=== PATIENT | female | born 1940 | race Caucasian/White ===

== ENCOUNTER 2017-05-14 01:20 | Inpatient (IN) | payer OTHER ==
[~2017-05-14] VITALS: Ht 147.3 cm; Wt 52.2 kg
[2017-05-14] MEDS ORDERED: METF-370 PO (01:45)
[2017-05-14] MEDS ORDERED: LEVO25TA6 PO (01:52)
[2017-05-14] MEDS ORDERED: GLIP-116 PO (01:52)
[2017-05-14] MEDS ORDERED: PAR20T PO (01:52)
[2017-05-14] MEDS ORDERED: MEMA1TAB2 PO (01:52)
[2017-05-14] MEDS ORDERED: ACAR50TA9 PO (01:52)
[2017-05-14] MEDS ORDERED: INDA1.252 PO (01:52)
[2017-05-14] MEDS ORDERED: DONE10TA40 PO (01:52)
[2017-05-14] MEDS ORDERED: ENAL2.5T PO (01:52)
[2017-05-14 03:04] LABS: Basophils # (auto) 0 uL; Basophils % (auto) 0.2 % (0.0-2.0); Eosinophils # (auto) 0 uL; Eosinophils % (auto) 0.3 % (0.0-7.0); Hematocrit 35.7 % (36.0-46.0); Lymphocytes # (auto) 1.1 uL; Mean Corpuscular Hemoglobin 29.7 pg (28.0-32.0); Mean Corpuscular Hgb Conc. 33.8 g/dL (32.0-36.0); Monocytes # (auto) 0.6 uL; Monocytes % (auto) 5.3 % (0.0-12.0); Neutrophils # (auto) 9.6 uL; Neutrophils % (auto) 84.2 % (37.0-80.0); Platelet Count (auto) 287 10^3/uL (140-450); Red Blood Cells 4.05 10^6/uL (4.0-5.20); Red Cell Distribution Width 13.2 % (11.8-14.3); White Blood Cell 11.4 10^3/uL (4.4-10.8)
[2017-05-14 03:30] LABS: INR 0.98 (0.9-1.15); Prothrombin Time 10.7 sec (9.37-12.3)
[2017-05-14 03:42] LABS: BUN/Creatinine Ratio 29.7; Potassium 3.1 mmol/L (3.5-5.1)
[2017-05-14 03:43] LABS: Albumin 3.2 g/dL (3.4-5.0); Bilirubin, Total 0.4 mg/dL (0.2-1.0); Calcium 8.8 mg/dL (8.5-10.1); Total Protein 6.4 g/dL (6.4-8.2)
[2017-05-14 04:58] LABS: Magnesium 1.8 mg/dL (1.6-2.6)
[2017-05-14] MEDS ORDERED: MORPHINE SULF INJ 2 MG/ML SYRINGE 1ML IV PRN (07:30)
[2017-05-14] MEDS ORDERED: POTASSIUM CHL 20 Meq TABLET PO ONE (07:30)
[2017-05-14] MEDS ORDERED: HYDROcodone-ACET 5/325MG TAB PO PRN (07:30)
[2017-05-14] MEDS ORDERED: ACETAMINOPHEN 325 MG TAB PO PRN (07:30)
[2017-05-14] MEDS ORDERED: DEXTROSE (50%) 50ML SYRG IV PRN (07:30)
[2017-05-14] MEDS ORDERED: NITROGLYCERIN 0.4 MG SL TAB SL PRN (07:30)
[2017-05-14] MEDS ORDERED: ONDANSETRON HCL 4 MG/2 ML VIAL IV PRN (07:30)
[2017-05-14] MEDS ORDERED: TEMAZEPAM 15 MG CAP PO PRN (07:30)
[2017-05-14] MEDS ORDERED: DOCUSATE SOD 100 MG CAP PO PRN (07:30)
[2017-05-14] MEDS: SODIUM CHLORIDE 0.9% 1,000 ML IV SCH ×2 (08:13→21:08)
[2017-05-14] MEDS ORDERED: POTASSIUM CHL 10% (20 MEQ/15ML) 15ml ORAL SOLN PO ONE (08:15)
[2017-05-14] MEDS ORDERED: ASPirin 81 mg TAB ONE (09:30)
[2017-05-14] MEDS ORDERED: FAMOTIDINE 20 MG TAB ONE (09:32)
[2017-05-14] MEDS ORDERED: ENOXAPARIN SOD 40 MG/0.4 ML SYRINGE SC ONE (09:32)
[2017-05-14] MEDS ORDERED: PARoxetine 20 MG TAB ONE (09:32)
[2017-05-14] MEDS ORDERED: MEMANTINE HCL 5 MG TAB ONE (09:34)
[2017-05-14] MEDS ORDERED: ENALAPRIL MALEATE 10 MG TAB ONE (09:34)
[2017-05-14] MEDS: PARoxetine 20 MG TAB PO SCH (09:56)
[2017-05-14] MEDS: MEMANTINE HCL 5 MG TAB PO SCH ×2 (09:56→22:48)
[2017-05-14] MEDS: FAMOTIDINE 20 MG TAB PO SCH (09:56)
[2017-05-14] MEDS: ASPirin 81 mg TAB PO SCH (09:56)
[2017-05-14] MEDS: ENALAPRIL MALEATE 10 MG TAB PO SCH (09:56)
[2017-05-14] MEDS: ENOXAPARIN SOD 40 MG/0.4 ML SYRINGE SC SCH (09:57)
[2017-05-14] MEDS ORDERED: ONDANSETRON HCL 4 MG/2 ML VIAL ONE (10:06)
[2017-05-14] MEDS: InsuLIN REG 1unit/0.01ml Soln (100units/ml) SC SCH ×3 (11:40→22:48)
[2017-05-14] MEDS: ACCU-CHEK COMFORT CURVE STRIP VI SCH ×3 (11:40→22:48)
[2017-05-14] MEDS ORDERED: LORazepam 2MG/ML-1ML VIAL IV ONE (12:30)
[2017-05-14 13:14] LABS: Potassium 4.5 mmol/L (3.5-5.1)
[2017-05-14 13:15] LABS: BUN/Creatinine Ratio 17.9; Calcium 8.8 mg/dL (8.5-10.1)
[2017-05-14] MEDS ORDERED: DONEPEZIL HYDROCHLORIDE 5 MG TAB PO SCH (22:00)
[2017-05-15] MEDS: ACCU-CHEK COMFORT CURVE STRIP VI SCH (06:03)
[2017-05-15] MEDS: InsuLIN REG 1unit/0.01ml Soln (100units/ml) SC SCH (06:04)
[2017-05-15] MEDS ORDERED: LEVOTHYROXINE SODIUM 25 MCG TAB PO SCH (07:00)
[2017-05-15 07:51] LABS: Basophils # (auto) 0 uL; Basophils % (auto) 0.3 % (0.0-2.0); Eosinophils # (auto) 0 uL; Eosinophils % (auto) 0.2 % (0.0-7.0); Hemoglobin 9.9 g/dL (12.2-16.2); Lymphocytes # (auto) 2.7 uL; Lymphocytes % (auto) 40.8 % (10.0-50.0); Mean Corpuscular Hemoglobin 30.3 pg (28.0-32.0); Mean Corpuscular Hgb Conc. 34.3 g/dL (32.0-36.0); Mean Corpuscular Volume 88.4 fL (80.0-100.0); Monocytes # (auto) 0.5 uL; Monocytes % (auto) 7.9 % (0.0-12.0); Neutrophils # (auto) 3.3 uL; Neutrophils % (auto) 50.8 % (37.0-80.0); Nucleated Red Blood Cells % 0.1 %; Platelet Count (auto) 242 10^3/uL (140-450); Red Blood Cells 3.28 10^6/uL (4.0-5.20); Red Cell Distribution Width 13.2 % (11.8-14.3); White Blood Cell 6.5 10^3/uL (4.4-10.8)
[2017-05-15 08:10] LABS: Albumin 2.7 g/dL (3.4-5.0); BUN/Creatinine Ratio 26.4; Bilirubin, Total 0.5 mg/dL (0.2-1.0); Potassium 3.7 mmol/L (3.5-5.1); Total Protein 5.7 g/dL (6.4-8.2)
[2017-05-15] MEDS: ENALAPRIL MALEATE 10 MG TAB PO SCH (09:50)
[2017-05-15] MEDS: PARoxetine 20 MG TAB PO SCH (09:51)
[2017-05-15] MEDS: ENOXAPARIN SOD 40 MG/0.4 ML SYRINGE SC SCH (09:51)
[2017-05-15] MEDS: FAMOTIDINE 20 MG TAB PO SCH (09:51)
[2017-05-15] MEDS: MEMANTINE HCL 5 MG TAB PO SCH (09:51)
[2017-05-15] MEDS: ASPirin 81 mg TAB PO SCH (09:51)
[2017-05-15 11:53] VITALS: BP 116/57
[2017-05-15 12:01] VITALS: BP 116/57
== END 2017-05-15 14:14 | disposition home health service (06) | DRG 64 ==
LOC: EDBD 01:20 → ER 01:24 → TELE 01:25
PROVIDERS: ADMIT Nurse Practitioner; ATTEND Internal Medicine
DX: I62.01 Nontraumatic acute subdural hemorrhage (principal); G93.41 Metabolic encephalopathy; E11.65 Type 2 diabetes mellitus with hyperglycemia; E87.1 Hypo-osmolality and hyponatremia; I71.2 Thoracic aortic aneurysm, without rupture; J98.11 Atelectasis; W19.XXXA Unspecified fall, initial encounter; E86.0 Dehydration; F32.9 Major depressive disorder, single episode, unspecified; E03.9 Hypothyroidism, unspecified; I11.9 Hypertensive heart disease without heart failure; D72.829 Elevated white blood cell count, unspecified; R29.702 NIHSS score 2; E78.5 Hyperlipidemia, unspecified; E87.6 Hypokalemia; F03.90 Unspecified dementia, unspecified severity, without behavioral disturbance, psychotic disturbance, mood disturbance, and anxiety; Z86.73 Personal history of transient ischemic attack (TIA), and cerebral infarction without residual deficits; Z90.49 Acquired absence of other specified parts of digestive tract; Y93.89 Activity, other specified; Y99.8 Other external cause status; Y92.002 Bathroom of unspecified non-institutional (private) residence as the place of occurrence of the external cause
CPT/HCPCS: 36415; 70450; 70551; 71045; 71275; 80048; 80053; 82962; 83735; 83880; 84484; 85025; 85379; 85610; 85730; 93005; 93306; 93886; 96360; 96372; J1815; J2405

== ENCOUNTER 2017-05-21 15:07 | Emergency (ER) | payer OTHER ==
[~2017-05-21] VITALS: Ht 147.3 cm; Wt 52.2 kg
[~2017-05-21 15:07] MED LIST: ACAR50TA9 PO; DONE10TA40 PO; ENAL2.5T PO; GLIP-116 PO; INDA1.252 PO; LEVO25TA6 PO; MEMA1TAB2 PO; METF-370 PO; PAR20T PO
[2017-05-21 15:57] LABS: Basophils # (auto) 0.1 uL; Basophils % (auto) 1.4 % (0.0-2.0); Eosinophils # (auto) 0.1 uL; Eosinophils % (auto) 1.3 % (0.0-7.0); Hematocrit 33.4 % (36.0-46.0); Hemoglobin 11.3 g/dL (12.2-16.2); Lymphocytes # (auto) 2.2 uL; Lymphocytes % (auto) 23.4 % (10.0-50.0); Mean Corpuscular Hgb Conc. 33.8 g/dL (32.0-36.0); Mean Corpuscular Volume 88.8 fL (80.0-100.0); Monocytes # (auto) 0.7 uL; Monocytes % (auto) 7.6 % (0.0-12.0); Neutrophils # (auto) 6.2 uL; Neutrophils % (auto) 66.3 % (37.0-80.0); Nucleated Red Blood Cells % 0.1 %; Platelet Count (auto) 392 10^3/uL (140-450); Red Blood Cells 3.76 10^6/uL (4.0-5.20); Red Cell Distribution Width 13.3 % (11.8-14.3); White Blood Cell 9.4 10^3/uL (4.4-10.8)
[2017-05-21 16:12] LABS: Alanine Aminotransferase 24 U/L (13-56); Albumin 2.9 g/dL (3.4-5.0); Anion Gap 12 (5-15); BUN/Creatinine Ratio 34.9; Blood Alcohol < 3.0 mg/dL (0-5); Blood Urea Nitrogen 22 mg/dL (7-18); Calcium 9.2 mg/dL (8.5-10.1); Carbon Dioxide 25 mmol/L (21-32); Chloride 94 mmol/L (98-107); GFR African American 117 mL/min; GFR Non-African American 97 mL/min; Glucose 143 mg/dL (74-106); Potassium 3.7 mmol/L (3.5-5.1); Sodium 131 mmol/L (136-145)
[2017-05-21 16:22] LABS: Alkaline Phosphatase 66 U/L (45-117); Aspartate Aminotransferase 16 U/L (15-37); Bilirubin, Total 0.4 mg/dL (0.2-1.0); Total Protein 7.3 g/dL (6.4-8.2)
[2017-05-21 17:55] VITALS: BP 121/68
== END 2017-05-21 20:58 | disposition home or self-care (01) ==
LOC: EDUNIT# 15:07 → EDBD 15:07 → ER 15:13
DX: I62.00 Nontraumatic subdural hemorrhage, unspecified (principal); D64.9 Anemia, unspecified; R51 Headache; R53.1 Weakness; E11.9 Type 2 diabetes mellitus without complications; I10 Essential (primary) hypertension; E78.00 Pure hypercholesterolemia, unspecified
CPT/HCPCS: 36415; 70450; 71045; 80053; 80320; 82962; 84484; 85025; 93005